=== PATIENT | female | born 1990 | race Two or more races ===

== ENCOUNTER 2024-04-13 12:45 | Emergency (ER) | payer MEDICAID, SELFPAY ==
[2024-04-13 13:21] VITALS: BP 127/83; PULSE 78; RESP 18; TEMP 36.9; O2SAT 99
--- NOTE | 2024-04-13 13:22 | PD.EDDENTL ---
ED Dental RME/HPI General Chief complaint: Dental/Oral/Throat Stated complaint: TOOTH PAIN Time Seen by Provider: 04/13/24 13:05 Arrival date/time: 04/13/24 12:45 33 year-old female presents emergency department complains of dental pain patient reports no fever nausea vomiting patient for symptoms ongoing x 1 day Limitations: no limitations Related Data Previous Rx's ?Medication ?Instructions ?Recorded naproxen 500 mg tablet 500 mg PO BID PRN pain #30 tabs 01/16/24 amoxicillin 875 mg-potassium 1 tab PO BID 10 days #20 tabs 04/13/24 clavulanate 125 mg tablet hydrocodone 5 mg-acetaminophen 325 1 tab PO BID PRN pain #6 tabs 04/13/24 mg tablet ibuprofen 800 mg tablet 800 mg PO TID PRN pain #30 tabs 04/13/24 Allergies Allergy/AdvReac Type Severity Reaction Status Date / Time No Known Allergies Allergy Verified 01/16/24 23:12 Review of Systems Review of Systems Systems Reviewed: All systems reviewed, normal except as documented Constitutional Constitutional: Reports system reviewed and no additional complaints, except as documented, Denies fever(s) and Denies headache(s) Eyes Eyes: Reports system reviewed and no additional complaints, except as documented and Denies blurry vision ENT Ears, Nose, Mouth, and Throat: Reports system reviewed and no additional complaints, except as documented, Reports dental pain, Reports facial pain, Denies headache(s), Denies nasal congestion, Denies nasal discharge, Denies sore throat and Denies throat swelling Cardiovascular Cardiovascular: Reports system reviewed and no additional complaints, except as documented, Denies chest pain and Denies dyspnea Respiratory Respiratory: Reports system reviewed and no additional complaints, except as documented, Denies chest congestion, Denies cough and Denies dyspnea Gastrointestinal Gastrointestinal: Reports system reviewed and no additional complaints, except as documented and Denies abdominal pain Integumentary/Breasts Skin/Breast: Reports system reviewed and no additional complaints, except as documented and Denies rash Neurologic Neurologic: Reports system reviewed and no additional complaints, except as documented, Reports as per HPI and Denies headache(s) Allergic/Immunologic Allergic/Immunologic: Denies throat swelling Past Medical History Past Medical History NEUROLOGIC: Negative Neurological Disorders CARDIAC: Negative Cardiac Disorders Social History SMOKING STATUS: Never smoker ED Exam General Limitations: Present no limitations General appearance: Present alert and in no apparent distress Head Head exam: Present atraumatic Eye Eye exam: Present normal appearance, PERRL and EOMI ENT ENT exam: Present normal exam, normal oropharynx, mucous membranes moist and other (Dental pain,) Neck Neck exam: Present normal inspection, full ROM and trachea midline Chest Chest inspection: Present normal inspection and symmetric chest wall rise Respiratory Respiratory exam: Present normal lung sounds bilaterally Cardiovascular Cardiovascular exam: Present regular rate, normal rhythm and normal heart sounds Abdominal Exam Abdominal exam: Present soft and normal bowel sounds Extremities Exam Extremities exam: Present normal inspection and full ROM Back Exam Back exam: Present normal inspection and full ROM Neurological Exam Neurological exam: Present alert, oriented X3 and CN II-XII intact Psychiatric Psychiatric exam: Present normal affect and normal mood Skin Skin exam: Present warm, dry, intact and normal color Course Quality Measures none Vital Signs Vital signs: Vital Signs Temperature 98.4 F 04/13/24 13:21 Pulse Rate 78 04/13/24 13:21 Respiratory Rate 18 04/13/24 13:21 Blood Pressure 127/83 04/13/24 13:21 Pulse Oximetry (%) 99 04/13/24 13:21 Oxygen Delivery Method Room Air 04/13/24 13:21 o2 sat 99% r/a wnl Dental / Oral MDM Narrative MDM Narrative:: 33 year-old female presents emergency department complains of dental pain patient reports no fever nausea vomiting patient for symptoms ongoing x 1 day On exam patient well-appearing patient's not appear ill or toxic patient's not appear in acute distress Patient has no definite abscess but does report pain patient be treated with course of antibiotics and pain medication Patient discharged home in no distress to follow-up with dentist in the next 24 to 48 hours and for any worsening symptoms to return to the ER immediately Patient data External records reviewed:: [facility] previous records Clinical information provided by:: patient Social determinants that could affect healthcare access:: none Patient has the following chronic illnesses:: None How is presenting disease/condition affected by chronic disease/condition?: no chronic disease Evaluation data The following diagnostics were reviewed and interpreted by me:: other (specify) (N/A) Lab and/or radiology exams considered but not ordered:: Consider not ordered Interpretation Summary: N/A Medications / Prescriptions Medications or Prescriptions considered but not ordered:: Given Medication administrations:: Given Consultations Consultation(s) initiated? (list below): No Diagnosis Dental Differential Diagnosis: gingival abscess, dental caries, toothache and dental abscess Most likely diagnosis given after review of the tests above:: Dental pain Admission Indicated Admission indicated?: not indicated Admission Request Was there a request for admission?: No Disposition Plan Disposition Plan: Discharge Discharge Attestation Discharge Attestation: The patient and all family members were given an opportunity to ask questions and understood the discharge instructions. Discharge instructions specifically effects, indications for sooner follow up or return to the emergency department, and the expected course of current diagnosis. Patient condition: Stable Critical Care Time Critical Care Time Critical Care Time: No Discharge Plan Plan Patient Disposition: HOME (Self Care) Disposition Comment: Stable Prescriptions/Referrals Prescriptions/Med Rec: New ibuprofen 800 mg tablet 800 mg PO TID PRN (Reason: pain) Qty: 30 0RF hydrocodone-acetaminophen 5-325 mg tablet 1 tab PO BID MDD 10 PRN (Reason: pain) Qty: 6 0RF amoxicillin-pot clavulanate 875-125 mg tablet 1 tab PO BID 10 Days Qty: 20 0RF No Action naproxen 500 mg tablet 500 mg PO BID PRN (Reason: pain) Qty: 30 0RF Problem List Clinical Impression: Dental caries Patient/Caregiver Discharge Instructions Education Materials: ED Dental Cavity Additional Instructions: Please follow up with your primary care doctor in the next 24-48hrs for any worsening symptoms return here immediately Print Language: Telugu Stand Alone Forms: Sandrita Award Info., Patient Portal Info Letter PA/TRACTOR MECHANIC Supervising Physician PA/TRACTOR MECHANIC Supervising Physician: Dr. Brunner
== END 2024-04-13 13:33 | disposition home or self-care (01) ==
LOC: SERX 13:50
PROVIDERS: Emergency Provider Emergency Medicine
DX: K02.9 Dental caries, unspecified (principal)
CPT/HCPCS: 99281

== ENCOUNTER 2024-08-01 21:02 | Emergency (ER) | payer MEDICAID, SELFPAY ==
[2024-08-01 21:03] VITALS: BMI 42.5
[2024-08-01 21:29] VITALS: BP 149/85; PULSE 84; RESP 18; TEMP 36.7; O2SAT 99
[2024-08-01] MEDS: FAMOTIDINE 20 MG TABLET 40 MG PO (22:21)
[2024-08-01] MEDS: MG HYD/AL HYD/SIME (Maalox Reg) SUSP 30 ML UDC PO (22:22)
[2024-08-02] MEDS: HYDROcodone/APAP 5/325 TABLET 1 TAB PO (00:25)
[2024-08-02 00:27] LABS: Collection Type, Urine Clean Catch; RBC,Urine 0 /hpf (0-3)
[2024-08-02 00:27] LABS: Basophils # (Auto) 0.1 Thou/mm3 (0.0-0.2); Basophils % (Auto) 1 % (0-2.5); Eosinophils # (Auto) 0.2 Thou/mm3 (0.0-0.5); Eosinophils % (Auto) 2 % (0-10); Hematocrit 41.3 % (36.0-46.0); Hemoglobin 13.5 g/dL (12.0-16.0); Immature Granulocytes % (Auto) 0 % (0-0); Immature Granulocytes Auto 0.04 Thou/mm3 (0.00-0.00); Lymphocytes # (Auto) 2.6 Thou/mm3 (1.0-4.8); Lymphocytes % (Auto) 21 % (10-50); Mean Corpuscular HGB Conc 32.7 g/dl (31.0-37.0); Mean Corpuscular Hemoglobin 30.5 pg (25.0-35.0); Mean Corpuscular Volume 93 fL (80-100); Monocytes # (Auto) 0.8 Thou/mm3 (0.0-0.8); Monocytes % (Auto) 6 % (0-12); Neutrophils # (Auto) 8.9 Thou/mm3 (1.8-7.7); Neutrophils % (Auto) 71 % (37-80); Nucleated Red Blood Cell % 0 /100 WBC (0); Platelet Count 285 Thou/mm3 (140-440); RDW Standard Deviation 46.3 fL (36.4-46.3); Red Blood Count 4.43 Miln/mm3 (4.00-5.20); White Blood Count 12.6 Thou/mm3 (3.6-11.0)
[2024-08-02 00:38] LABS: Bilirubin,Urine Negative (Negative); Blood,Urine Negative (Negative); Clarity,Urine Clear (Clear/Hazy); Color,Urine Yellow (Lt Yel-Yel); Glucose, Urine Negative (Negative); Ketones,Urine 1+ (Negative); Leukocyte Esterase,Urine Positive (Negative); Nitrite,Urine Negative (Negative); Protein,Urine 1+ (Neg - Trace); Specific Gravity,Urine 1.038 (1.001-1.035); Squamous Epithelial Cell,Urine 4 /hpf (0-5); Urobilinogen,Urine Negative mg/dL (0.0-1.0); WBC,Urine 2 /hpf (0-5)
[2024-08-02 00:39] LABS: HCG Qualitative,Urine Negative
[2024-08-02 00:41] LABS: Amphetamine/Methamp Scrn,U Negative (Negative); Barbiturate Screen,Urine Negative (Negative); Benzodiazepines Screen,Urine Negative (Negative); Benzoylecgonine Screen, Ur Negative (Negative); Fentanyl Screen,Urine Negative (Negative); Opiate Screen,Urine Negative (Negative); THC Screen,Urine Negative (Negative)
[2024-08-02 00:44] LABS: Alanine Aminotransferase 19 U/L (10-49); Albumin, Serum 4.4 gm/dL (3.5-5.0); Albumin/Globulin Ratio 1.5 (1.2-2.2); Alkaline Phosphatase 78 U/L (46-116); Anion Gap 8 (7-16); Aspartate Amino Transferase 17 U/L (0-34); BUN/Creatinine Ratio 15 Ratio (12-20); Bilirubin,Total 0.7 mg/dL (0.3-1.2); Blood Urea Nitrogen 9 mg/dL (9-23); Calcium 9.3 mg/dL (8.3-10.6); Calcium (Corrected) 9.3 mg/dL (8.5-10.1); Carbon Dioxide 25.7 mMol/L (20.0-31.0); Chloride 106 mMol/L (98-107); Creatinine (Component) 0.6 mg/dL (0.6-1.3); Estimated Creatinine Clearance 159.3 mL/min (>60); Glucose 97 mg/dL (74-106); Lipase 25 U/L (12-53); Osmolality,Calculated 278 (275-295); Potassium 3.5 mMol/L (3.4-5.1); Sodium 140 mMol/L (136-145); Total Protein 7.4 gm/dL (5.7-8.2); eGFR > 60 See Note
--- NOTE | 2024-08-02 03:52 | PD.EDABDPN ---
ED Abdominal Pain RME/HPI General Chief Complaint: Back Pain/Injury Stated complaint: epigastric pain radiating to back x 3 days. Time seen by provider: 08/01/24 21:53 Arrival date/time: 08/01/24 21:02 34F with history of cholecystectomy presents to ED with 3 days of epigastric pain that radiates to back, as well as some excess burping. Pain is worse after she eats. Patient denies N/V, vaginal bleeding, dysuria, CP, and SOB. Limitations: no limitations Related Data Previous Rx's ?Medication ?Instructions ?Recorded naproxen 500 mg tablet 500 mg PO BID PRN pain #30 tabs 01/16/24 hydrocodone 5 mg-acetaminophen 325 1 tab PO BID PRN pain #6 tabs 04/13/24 mg tablet ibuprofen 800 mg tablet 800 mg PO TID PRN pain #30 tabs 04/13/24 Allergies Allergy/AdvReac Type Severity Reaction Status Date / Time No Known Allergies Allergy Verified 01/16/24 23:12 Review of Systems Review of Systems Systems Reviewed: All systems reviewed, normal except as documented Constitutional Constitutional: Reports system reviewed and no additional complaints, except as documented, Denies fever(s) and Denies headache(s) ENT Ears, Nose, Mouth, and Throat: Denies disequilibrium and Denies headache(s) Cardiovascular Cardiovascular: Reports system reviewed and no additional complaints, except as documented, Denies chest pain and Denies dyspnea Respiratory Respiratory: Reports system reviewed and no additional complaints, except as documented, Denies cough and Denies dyspnea Gastrointestinal Gastrointestinal: Reports system reviewed and no additional complaints, except as documented, Reports as per HPI, Reports abdominal pain, Denies nausea and Denies vomiting Neurologic Neurologic: Reports system reviewed and no additional complaints, except as documented, Denies confusion, Denies disequilibrium and Denies headache(s) Psychiatric Psychiatric: Denies confusion Past Medical History Past Medical History NEUROLOGIC: Negative Neurological Disorders CARDIAC: Negative Cardiac Disorders Social History SMOKING STATUS: Never smoker ED Exam General Limitations: Present no limitations General appearance: Present alert and in no apparent distress Head Head exam: Present atraumatic Eye Eye exam: Present normal appearance, PERRL and EOMI ENT ENT exam: Present normal exam, normal oropharynx and mucous membranes moist Neck Neck exam: Present normal inspection, full ROM and trachea midline Chest Chest inspection: Present normal inspection and symmetric chest wall rise Respiratory Respiratory exam: Present normal lung sounds bilaterally Cardiovascular Cardiovascular exam: Present regular rate, normal rhythm and normal heart sounds Abdominal Exam Abdominal exam: Present soft and normal bowel sounds Abdominal tenderness: Present epigastrium and mild Extremities Exam Extremities exam: Present normal inspection and full ROM Back Exam Back exam: Present normal inspection and full ROM Neurological Exam Neurological exam: Present alert, oriented X3 and CN II-XII intact Psychiatric Psychiatric exam: Present normal affect and normal mood Skin Skin exam: Present warm, dry, intact and normal color Course Quality Measures none Orders Category Date Time Status CBC Stat Lab 08/01/24 23:54 Completed CMP [Comprehensive Metabolic Panel] Stat Lab 08/01/24 23:54 Completed Drug Screen,Urine Stat Lab 08/02/24 00:11 Completed HCG Qualitative,Urine Stat Lab 08/02/24 00:11 Completed Lipase Stat Lab 08/01/24 23:54 Completed UA [Urinalysis] Stat Lab 08/02/24 00:11 Completed Famotidine [Pepcid] Med 08/01/24 21:53 Discontinued 40 mg PO X1 ONE HYDROcodone*/APAP 5/325 [[place] 5/325] Med 08/01/24 23:54 Discontinued 1 tab PO X1 ONE mg Hyd/Al Hyd/Phil Susp [Maalox Susp] Med 08/01/24 21:53 Discontinued 30 ml PO X1 ONE Vital Signs Vital signs: Vital Signs Temperature 98.1 F 08/01/24 21:29 Pulse Rate 84 08/01/24 21:29 Respiratory Rate 18 08/01/24 21:29 Blood Pressure 149/85 H 08/01/24 21:29 Pulse Oximetry (%) 99 08/01/24 21:29 Oxygen Delivery Method Room Air 08/01/24 21:29 O2 at 99% on RA and WNLs Abdominal Pain MDM MDM Narrative MDM Narrative:: 34F with history of cholecystectomy presents to ED with 3 days of epigastric pain that radiates to back, as well as some excess burping. Pain is worse after she eats. Patient denies N/V, vaginal bleeding, dysuria, CP, and SOB. Physical exam reveals mild epigastric tenderness. Normal WOB. Patient is afebrile, calm, and alert. GI cocktail did not relieve symptoms. Mild leukocytosis. CMP unremarkable. Lipase normal. UA unremarkable. HCG neg. Pain improved with [place]. Because patient felt better, patient did not want to wait for CT as the machine is currently broken and the queue for the one across the street is 6+ hours. Patient states she will return to ED if worsening. Patient data External records reviewed:: [facility] previous records Clinical information provided by:: patient Social determinants that could affect healthcare access:: none Patient has the following chronic illnesses:: none How is presenting disease/condition affected by chronic disease/condition?: no chronic disease Evaluation data The following diagnostics were reviewed and interpreted by me:: lab results Lab and/or radiology exams considered but not ordered:: ordered Interpretation Summary: above Medications / Prescriptions Medications or Prescriptions considered but not ordered:: ordered Medication administrations:: Medication Administration History Discontinued Medications Hydrocodone Bitart/Acetaminophen (Hydrocodone/Apap 5/325 Tablet) 1 tab PO X1 ONE Stop: 08/01/24 23:55 Last Admin: 08/02/24 00:25 Dose: 1 tab Documented By: SUSHMA Al Hydrox/Mg Hydrox/Simethicone (Mg Hyd/Al Hyd/Phil (Maalox Reg) Susp 30 Ml Udc) 30 ml PO X1 ONE Stop: 08/01/24 21:54 Last Admin: 08/01/24 22:22 Dose: 30 ml Documented By: SUSHMA Famotidine (Famotidine 20 Mg Tablet) 40 mg PO X1 ONE Stop: 08/01/24 21:54 Last Admin: 08/01/24 22:21 Dose: 40 mg Documented By: SUSHMA above Consultations Consultation(s) initiated? (list below): No Diagnosis Differential diagnosis abdominal pain: abdominal pain, acute appendicitis, calculus of kidney, constipation, diverticulitis, endometriosis, gastroenteritis, pancreatitis, small bowel obstruction and other (SBO) Most likely diagnosis given after review of the tests above:: ab pain Admission Indicated Admission indicated?: not indicated Admission Request Was there a request for admission?: No Disposition Plan Disposition Plan: Discharge Discharge Attestation Discharge Attestation: The patient and all family members were given an opportunity to ask questions and understood the discharge instructions. Discharge instructions specifically effects, indications for sooner follow up or return to the emergency department, and the expected course of current diagnosis. Patient condition: Stable Discharge Plan Plan Patient Disposition: HOME (Self Care) Disposition Comment: Stable Prescriptions/Referrals Prescriptions/Med Rec: No Action naproxen 500 mg tablet 500 mg PO BID PRN (Reason: pain) Qty: 30 0RF ibuprofen 800 mg tablet 800 mg PO TID PRN (Reason: pain) Qty: 30 0RF hydrocodone-acetaminophen 5-325 mg tablet 1 tab PO BID MDD 10 PRN (Reason: pain) Qty: 6 0RF Referrals: Kirit Pierre MD [Primary Care Provider] - In 1 week Problem List Clinical Impression: Abdominal pain Patient/Caregiver Discharge Instructions Education Materials: ED Abdominal Pain Unkn Cause Fem Additional Instructions: Please follow-up with PCP within 24-48 hours and return immediately if symptoms worsen. Print Language: Hong Konger Stand Alone Forms: Patient Portal Info Letter PA/CASE MGR Supervising Physician PA/CASE MGR Supervising Physician: Dr. Castelan
== END 2024-08-02 01:10 | disposition home or self-care (01) ==
PROVIDERS: Physician Assistant; Emergency Provider Emergency Medicine; PCP Family Medicine
DX: R10.13 Epigastric pain (principal)
CPT/HCPCS: 36415; 80053; 80307; 81001; 81025; 83690; 85025; 99283; A9270

== ENCOUNTER 2024-08-07 20:24 | Emergency (ER) | payer MEDICAID, SELFPAY ==
[2024-08-07 20:24] VITALS: BMI 41.6
[2024-08-07 20:39] VITALS: BP 132/89; PULSE 95; RESP 18; TEMP 37.1; O2SAT 100
--- NOTE | 2024-08-07 20:53 | XR_ITS ---
Examination: CT abdomen with intravenous contrast CT pelvis with intravenous contrast 2-D coronal reconstructions 2-D sagittal reconstructions Date and time of exam:August 08, 2024 at 0008 hrs. Indications: Onset abdominal pain beginning one week ago. CTDI: vol (mGy) 17.4 DLP: (mGycm) 1024 Technique: Multiple axial sections of the abdomen and pelvis have been obtained. 64 slice high-resolution scanner used. 3 mm axial sections have been obtained, post intravenous injection 60 cc [id number] 2-D sagittal, coronal reconstructions obtained. Low dose protocols were performed. One or more of the following dose reduction techniques were used; automated exposure control, adjustment of the mA and/or KV according to patient size, use of iterative reconstruction technique. Findings: No focal liver or splenic lesion Gallbladder is not visualized No pancreatic or adrenal mass No renal or ureteral calculi, no hydronephrosis Aorta normal size No bowel obstruction Tiny fat-containing umbilical hernia Negative for pneumoperitoneum No pericecal inflammatory change Small bilateral ovarian follicular cyst No pelvic mass Impression: No acute process in the abdomen or pelvis
[2024-08-07 21:23] LABS: Basophils # (Auto) 0.1 Thou/mm3 (0.0-0.2); Basophils % (Auto) 1 % (0-2.5); Eosinophils # (Auto) 0.4 Thou/mm3 (0.0-0.5); Eosinophils % (Auto) 3 % (0-10); Hematocrit 41.6 % (36.0-46.0); Hemoglobin 14.2 g/dL (12.0-16.0); Immature Granulocytes % (Auto) 0 % (0-0); Immature Granulocytes Auto 0.03 Thou/mm3 (0.00-0.00); Lymphocytes % (Auto) 25 % (10-50); Mean Corpuscular HGB Conc 34.1 g/dl (31.0-37.0); Mean Corpuscular Hemoglobin 31.1 pg (25.0-35.0); Mean Corpuscular Volume 91 fL (80-100); Monocytes # (Auto) 0.8 Thou/mm3 (0.0-0.8); Monocytes % (Auto) 7 % (0-12); Neutrophils # (Auto) 7.8 Thou/mm3 (1.8-7.7); Neutrophils % (Auto) 64 % (37-80); Nucleated Red Blood Cell % 0 /100 WBC (0); Platelet Count 237 Thou/mm3 (140-440); RDW Standard Deviation 45.2 fL (36.4-46.3); Red Blood Count 4.56 Miln/mm3 (4.00-5.20); White Blood Count 12.1 Thou/mm3 (3.6-11.0)
[2024-08-07 21:31] LABS: HCG Qualitative,Urine Negative
[2024-08-07 22:21] LABS: Alanine Aminotransferase 14 U/L (10-49); Albumin, Serum 4.5 gm/dL (3.5-5.0); Albumin/Globulin Ratio 1.6 (1.2-2.2); Alkaline Phosphatase 76 U/L (46-116); Anion Gap 7 (7-16); Aspartate Amino Transferase 13 U/L (0-34); BUN/Creatinine Ratio 13 Ratio (12-20); Bilirubin,Total 0.5 mg/dL (0.3-1.2); Blood Urea Nitrogen 9 mg/dL (9-23); Calcium 9.4 mg/dL (8.3-10.6); Calcium (Corrected) 9.4 mg/dL (8.5-10.1); Chloride 106 mMol/L (98-107); Creatinine (Component) 0.7 mg/dL (0.6-1.3); Estimated Creatinine Clearance 134.9 mL/min (>60); Globulin 2.9 gm/dL (2.3-3.5); Glucose 96 mg/dL (74-106); Lipase 26 U/L (12-53); Osmolality,Calculated 278 (275-295); Sodium 140 mMol/L (136-145); Total Protein 7.4 gm/dL (5.7-8.2); eGFR > 60 See Note
--- NOTE | 2024-08-08 01:10 | PRELIM_ITS ---
CT scan of the abdomen and pelvis with intravenous contrast (axial sections with sagittal and coronal reformats) August 08, 2024 0002 hours Clinical History: Epigastric pain No prior study is available for comparison. Findings: The lung bases are clear. Fatty infiltration of the liver is noted. The gallbladder is not clearly visualized. The pancreas, spleen, kidneys and adrenals are unremarkable. No evidence of bowel dilatation. The appendix is not visualized. The urinary bladder is incompletely distended at the time of the examination. There are bilateral ovarian follicles/cysts. There is no free fluid or free air.There is no adenopathy. A small fat-containing umbilical hernia is present. The osseous structures are unremarkable. Impression: No evidence of acute intra-abdominal or pelvic pathology. Bilateral ovarian follicles/cysts. Other findings as described above. Report Electronically Signed By: Kj Saenz 08/08/2024 1:09:39 AM [EST]
[2024-08-08] MEDS: LIDOCAINE VISCOUS 2% 15 ML UDC PO (01:40)
--- NOTE | 2024-08-08 03:20 | EDNOTE_ITS ---
ED Abdominal Pain RME/HPI General Chief Complaint: Abdominal Pain Stated complaint: UPPER ABDOMINAL PAIN Time seen by provider: 08/07/24 20:52 Arrival date/time: 08/07/24 20:24 34F with history of cholecystectomy presents to ED with several days of epigastric pain that radiates to back, as well as some excess burping. Pain is worse after she eats. Patient denies N/V, vaginal bleeding, dysuria, CP, and SOB. Patient was here recently for this, but CT machine was down and patient didn't want to wait. Limitations: no limitations Related Data Previous Rx's ?Medication ?Instructions ?Recorded naproxen 500 mg tablet 500 mg PO BID PRN pain #30 t abs 01/16/24 hydrocodone 5 mg-acetaminophen 325 1 tab PO BID PRN pa in #6 tabs 04/13/24 mg tablet ibuprofen 800 mg tablet 800 mg PO TID PRN pain #30 t abs 04/13/24 lidocaine HCl 2 % mucosal solution 10 ml PO BID PRN ga stritis #100 mL 08/08/24 (Lidocaine Viscous) Allergies Allergy/AdvReac Type Severity Reaction Status Date / Time No Known Allergies Allergy Verified 01/16/24 23:12 Review of Systems Review of Systems Systems Reviewed: All systems reviewed, normal except as documented Constitutional Constitutional: Reports system reviewed and no additional complaints, except as documented, Denies fever(s) and Denies headache(s) ENT Ears, Nose, Mouth, and Throat: Denies disequilibrium and Denies headache(s) Cardiovascular Cardiovascular: Reports system reviewed and no additional complaints, except as documented, Denies chest pain and Denies dyspnea Respiratory Respiratory: Reports system reviewed and no additional complaints, except as documented, Denies cough and Denies dyspnea Gastrointestinal Gastrointestinal: Reports system reviewed and no additional complaints, except as documented, Reports as per HPI, Reports abdominal pain, Denies nausea and Denies vomiting Neurologic Neurologic: Reports system reviewed and no additional complaints, except as documented, Denies confusion, Denies disequilibrium and Denies headache(s) Psychiatric Psychiatric: Denies confusion Past Medical History Past Medical History NEUROLOGIC: Negative Neurological Disorders CARDIAC: Negative Cardiac Disorders RESPIRATORY: Negative Asthma GENITOURINARY: Negative Renal Disease ENDOCRINE: Negative Diabetes Mellitus Type 2 HEMATOLOGIC: Negative Sickle Cell Disease Social History SMOKING STATUS: Never smoker ED Exam General Limitations: Present no limitations General appearance: Present alert and in no apparent distress Head Head exam: Present atraumatic Eye Eye exam: Present normal appearance, PERRL and EOMI ENT ENT exam: Present normal exam, normal oropharynx and mucous membranes moist Neck Neck exam: Present normal inspection, full ROM and trachea midline Chest Chest inspection: Present normal inspection and symmetric chest wall rise Respiratory Respiratory exam: Present normal lung sounds bilaterally Cardiovascular Cardiovascular exam: Present regular rate, normal rhythm and normal heart sounds Abdominal Exam Abdominal exam: Present soft and normal bowel sounds Abdominal tenderness: Present epigastrium and mild Extremities Exam Extremities exam: Present normal inspection and full ROM Back Exam Back exam: Present normal inspection and full ROM Neurological Exam Neurological exam: Present alert, oriented X3 and CN II-XII intact Psychiatric Psychiatric exam: Present normal affect and normal mood Skin Skin exam: Present warm, dry, intact and normal color Course Quality Measures none Orders Category Date Time Status CT Screening NOW Care 08/07/24 20:53 Completed Insert IV NOW Care 08/07/24 20:[address] abdomen pelvis w con Stat Exams 08/07/24 20:53 Taken CBC Stat Lab 08/07/24 21:12 Completed CMP [Comprehensive Metabolic Panel] Stat Lab 08/07/24 21:12 Completed HCG Qualitative,Urine Stat Lab 08/07/24 21:10 Completed Lipase Stat Lab 08/07/24 21:12 Completed Lidocaine 2% Viscous [Xylocaine 2% Viscous] Med 08/08/24 01:12 Discontinued 15 ml PO X1 ONE Vital Signs Vital signs: Vital Signs Temperature 98.7 F 08/07/24 20:39 Pulse Rate 95 08/07/24 20:39 Respiratory Rate 18 08/07/24 20:39 Blood Pressure 132/89 H 08/07/24 20:39 Pulse Oximetry (%) 100 08/07/24 20:39 Oxygen Delivery Method Room Air 08/07/24 20:39 O2 at 100% on RA and WNLs Abdominal Pain MDM MDM Narrative MDM Narrative:: 34F with history of cholecystectomy presents to ED with several days of epigastric pain that radiates to back, as well as some excess burping. Pain is worse after she eats. Patient denies N/V, vaginal bleeding, dysuria, CP, and SOB. Patient was here recently for this, but CT machine was down and patient didn't want to wait. Physical exam reveals mild epigastric tenderness. Normal WOB. Patient is afebrile, calm, and alert. Mild leukocytosis. CMP unremarkable. Lipase normal. UA unremarkable. HCG neg. CT no acute abnormalities. Patient states she got a numbing drink before that helped. Viscous lido given. Patient data External records reviewed:: [facility] previous records Clinical information provided by:: patient Social determinants that could affect healthcare access:: none Patient has the following chronic illnesses:: none How is presenting disease/condition affected by chronic disease/condition?: no chronic disease Evaluation data The following diagnostics were reviewed and interpreted by me:: lab results and radiology exam(s) Lab and/or radiology exams considered but not ordered:: ordered Interpretation Summary: above Medications / Prescriptions Medications or Prescriptions considered but not ordered:: ordered Medication administrations:: Medication Administration History Discontinued Medications Lidocaine HCl (Lidocaine Viscous 2% 15 Ml Udc) 15 ml PO X1 ONE Stop: 08/08/24 01:13 Last Admin: 08/08/24 01:40 Dose: 15 ml Documented By: MS urbina Consultations Consultation(s) initiated? (list below): No Diagnosis Differential diagnosis abdominal pain: abdominal pain, acute appendicitis, calculus of kidney, constipation, diverticulitis, endometriosis, gastroenteritis, pancreatitis, small bowel obstruction and other (gastritis) Most likely diagnosis given after review of the tests above:: gastritis Admission Indicated Admission indicated?: not indicated Admission Request Was there a request for admission?: No Disposition Plan Disposition Plan: Discharge Discharge Attestation Discharge Attestation: The patient and all family members were given an opportunity to ask questions and understood the discharge instructions. Discharge instructions specifically effects, indications for sooner follow up or return to the emergency department, and the expected course of current diagnosis. Patient condition: Stable Discharge Plan Plan Patient Disposition: HOME (Self Care) Disposition Comment: Stable Prescriptions/Referrals Prescriptions/Med Rec: New lidocaine HCl [Lidocaine Viscous] 2 % solution 10 ml PO BID PRN (Reason: gastritis) Qty: 100 0RF No Action naproxen 500 mg tablet 500 mg PO BID PRN (Reason: pain) Qty: 30 0RF ibuprofen 800 mg tablet 800 mg PO TID PRN (Reason: pain) Qty: 30 0RF hydrocodone-acetaminophen 5-325 mg tablet 1 tab PO BID MDD 10 PRN (Reason: pain) Qty: 6 0RF Referrals: Kirit Pierre MD [Primary Care Provider] - In 1 week Problem List Clinical Impression: Gastritis Patient/Caregiver Discharge Instructions Education Materials: ED Gastritis (Adult) Additional Instructions: Please follow-up with PCP within 24-48 hours and return immediately if symptoms worsen. Can ask PCP about H.pylori testing and possible referral to GI. Print Language: Maldivian Stand Alone Forms: Patient Portal Info Letter PA/[employer] Supervising Physician HUSEYIN/KRISTY Supervising Physician: Dr. Mars
== END 2024-08-08 01:43 | disposition home or self-care (01) ==
PROVIDERS: Physician Assistant; Emergency Provider Emergency Medicine; PCP Family Medicine
DX: K29.70 Gastritis, unspecified, without bleeding (principal)
CPT/HCPCS: 36415; 74177; 80053; 81025; 83690; 85025; 99285; A4649; J3490; Q9967